=== PATIENT | male | born 1985 | race Caucasian/White ===

== ENCOUNTER 2025-08-30 07:45 | Day surgery (SDC) | payer BC ==
[~2025-08-30 07:45] MED LIST: Sodium Chloride 0.9% 10 ML Syringe FLUSH PRN; Sodium Chloride 0.9% 10 ML Syringe FLUSH SCH
[2025-08-30] MEDS: Lactated Ringers 1,000 ML IV SCH (08:15)
[2025-08-30] MEDS ORDERED: propofoL 500 MG/50 ML 50 ML ONE ×3 (08:19→11:07)
[2025-08-30] MEDS ORDERED: Midazolam 1 MG/ML 2 ML SDV ONE (08:19)
[2025-08-30] MEDS ORDERED: fentaNYL 100 MCG/2 ML SDV ONE (08:19)
[2025-08-30] MEDS ORDERED: Propofol 200 MG/20 ML SDV ONE (08:20)
[2025-08-30] MEDS ORDERED: Ondansetron 4 MG/2 ML SDV ONE (08:21)
[2025-08-30] MEDS ORDERED: dexmedeTOMIDine HCl 200 MCG/2 ML SDV ONE (08:24)
[2025-08-30] MEDS ORDERED: Ropivacaine 0.5% 5 MG/ML 30 ML SDV ONE (08:24)
[2025-08-30] MEDS ORDERED: Dexamethasone 4 MG/ML 5 ML MDV ONE (10:23)
[2025-08-30] MEDS: EPINEPHrine 1 MG/ML SDV ONE (10:40)
[2025-08-30] MEDS ORDERED: Ketorolac 30 MG/ML SDV IVPUSH PRN (11:50)
[2025-08-30] MEDS ORDERED: fentaNYL 100 MCG/2 ML SDV IVPUSH PRN (11:50)
[2025-08-30] MEDS ORDERED: Ondansetron 4 MG/2 ML SDV IVPUSH PRN (11:50)
== END 2025-08-30 14:00 | disposition home or self-care (01) ==
LOC: JD.SDS 07:45
PROVIDERS: ATTEND Orthopaedic Surgery
DX: S43.432A Superior glenoid labrum lesion of left shoulder, initial encounter (principal); Z79.899 Other long term (current) drug therapy
CPT/HCPCS: 29807; 64415; C1713; J0169; J0690; J1100; J2003; J2250; J2405; J2704; J2795; J3010; J7120; J3490